=== PATIENT | female | born 1950 | race Caucasian/White ===

== ENCOUNTER 2022-07-24 19:23 | Inpatient (IN) ==
[2022-07-25] MEDS ORDERED: Naloxone 0.4 MG/ML INJ IVP PRN (00:30)
[2022-07-25] MEDS ORDERED: Ondansetron 4 MG/2 ML VIAL IVP PRN (00:30)
[2022-07-25 01:35] LABS: Hematocrit 31.2 % (35.3-44.9); Immature Granulocytes % 1.4 % (0-4); Lymphocytes % 12.2 %; Mean Corpuscular HGB Conc 32.1 g/dL (31.6-35.5); Mean Corpuscular Hemoglobin 27.2 pg (28.0-33.3); Mean Platelet Volume 9.2 fL (9.4-12.4); Platelet Count 191 K/mcL (140-400); Red Blood Count 3.67 M/mcL (3.82-4.97); Red Cell Distribution Width 14.3 % (11.5-14.5); White Blood Count 10.5 K/mcL (4.3-11.1)
[2022-07-25 01:36] LABS: Basophils # 0.1 K/mcL (0.0-0.2); Basophils % 1.1 %; Eosinophils # 0.2 K/mcL (0.0-0.6); Eosinophils % 1.5 %; Lymphocytes # 1.3 K/mcL (0.6-4.6); Monocytes % 9.8 %; Neutrophils # 7.7 K/mcL (1.6-8.9)
[2022-07-25 01:43] LABS: INR 1.1; Prothrombin Time 12.6 Seconds (9.4-12.1)
[2022-07-25 01:49] LABS: Adenovirus Not Detected (Not Detect); Bordetella Pertussis Not Detected (Not Detect); Chlamydophila pneumoniae Not Detected (Not Detect); Coronavirus 229E Not Detected (Not Detect); Coronavirus HKU1 Not Detected (Not Detect); Coronavirus NL63 Not Detected (Not Detect); Coronavirus OC43 Not Detected (Not Detect); Human Metapneumovirus Not Detected (Not Detect); Human Rhinovirus/Enterovirus Not Detected (Not Detect); Influenza A Subtype 2009 H1 Not Detected (Not Detect); Influenza B Not Detected (Not Detect); Mycoplasma pneumoniae Not Detected (Not Detect); Parainfluenza Virus 1 Not Detected (Not Detect); Parainfluenza Virus 2 Not Detected (Not Detect); Parainfluenza Virus 3 Not Detected (Not Detect); Parainfluenza Virus 4 Not Detected (Not Detect); Respiratory Syncytial Virus Not Detected (Not Detect); SARS-CoV-2 Not Detected (Not Detect)
[2022-07-25 02:16] LABS: Albumin 3.1 g/dL (3.5-5.7); Albumin/Globulin Ratio 1.1 (1.1-2.2); Bilirubin,Total 0.3 mg/dL (0.3-1.0); Calcium 8.9 mg/dL (8.6-10.3); Globulin 2.8 g/dL (2.4-3.5); Magnesium 2.1 mg/dL (1.6-2.6); Potassium 3.5 mEq/L (3.5-5.1); Total Protein 5.9 g/dL (6.4-8.9); Troponin I 0.04 ng/mL (< 0.04)
[2022-07-25] MEDS ORDERED: *HR* Heparin 5,000 UNIT/ML VIAL IVP ONE (03:48)
[2022-07-25] MEDS ORDERED: *HR* Heparin 5,000 UNIT/ML VIAL IVP PRN ×2 (03:48)
[2022-07-25 04:11] LABS: Bilirubin,Urine Negative (Negative); Blood,Urine Negative (Negative); Clarity,Urine Clear (Clear); Color,Urine Colorless (Yellow); Glucose,Urine (UA) Normal (Normal); Ketones,Urine Negative (Negative); Leukocyte Esterase,Urine Negative (Negative); Mucus,Urine Few per lpf (None-Few); Nitrite,Urine Negative (Negative); Protein,Urine 50 mg/dL (Neg-Trace); RBC,Urine 0-3 per hpf (0-3); Specific Gravity,Urine 1.008 (1.010-1.025); Squamous Epithelial Cell,Urine Few per hpf (None-Few); Urobilinogen,Urine Normal (Normal); WBC,Urine 0-3 per hpf (0-3)
[2022-07-25] MEDS ORDERED: Furosemide 20 MG/2 ML VIAL IVP ONE (04:16)
[2022-07-25 04:30] LABS: Hematocrit 30.8 % (35.3-44.9); Hemoglobin 9.9 g/dL (11.5-15.4); Mean Corpuscular HGB Conc 32.1 g/dL (31.6-35.5); Mean Corpuscular Hemoglobin 27.6 pg (28.0-33.3); Mean Corpuscular Volume 85.8 fL (83.0-100.0); Mean Platelet Volume 9.5 fL (9.4-12.4); Platelet Count 209 K/mcL (140-400); Red Blood Count 3.59 M/mcL (3.82-4.97); Red Cell Distribution Width 14.3 % (11.5-14.5); White Blood Count 11.3 K/mcL (4.3-11.1)
[2022-07-25] MEDS: Heparin 25,000UNIT/250ML 1/2NS 25,000 UNIT/250 ML IV.SOLN IVC SCH (04:31)
[2022-07-25 04:38] LABS: Heparin anti-factor XA UFH 0.04 IU/mL (0.30-0.70); INR 1.1
[2022-07-25] MEDS ORDERED: Aspirin 81 MG TAB.CHEW PO ONE (04:42)
[2022-07-25] MEDS: Acetaminophen 325 MG TABLET PO PRN (20:38)
[2022-07-26] MEDS: Heparin 25,000UNIT/250ML 1/2NS 25,000 UNIT/250 ML IV.SOLN IVC SCH (04:58)
[2022-07-26 08:32] LABS: Basophils # 0.1 K/mcL (0.0-0.2); Eosinophils # 0.3 K/mcL (0.0-0.6); Eosinophils % 3.5 %; Hematocrit 30.6 % (35.3-44.9); Hemoglobin 9.5 g/dL (11.5-15.4); Immature Granulocytes % 1.2 % (0-4); Lymphocytes # 1.6 K/mcL (0.6-4.6); Lymphocytes % 17.7 %; Mean Corpuscular Hemoglobin 27.2 pg (28.0-33.3); Mean Corpuscular Volume 87.7 fL (83.0-100.0); Mean Platelet Volume 9.8 fL (9.4-12.4); Monocytes % 10.8 %; Platelet Count 232 K/mcL (140-400); Red Blood Count 3.49 M/mcL (3.82-4.97); Red Cell Distribution Width 14.6 % (11.5-14.5); Segmented Neutrophils % 65.8 %; White Blood Count 9.2 K/mcL (4.3-11.1)
[2022-07-26 08:42] LABS: Calcium 8.7 mg/dL (8.6-10.3); Potassium 3.8 mEq/L (3.5-5.1)
[2022-07-26] MEDS ORDERED: Ipratropium/Albuterol Neb 3 ML IH ONE (12:13)
[2022-07-26] MEDS ORDERED: *HR* LORazepam 2 MG/ML VIAL IVP ONE (13:46)
[2022-07-26] MEDS: Furosemide 40 MG TABLET PO SCH (17:13)
[2022-07-26] MEDS: Gabapentin 300 MG CAPSULE PO SCH (22:16)
[2022-07-27] MEDS: Heparin 25,000UNIT/250ML 1/2NS 25,000 UNIT/250 ML IV.SOLN IVC SCH ×3 (00:22→21:31)
[2022-07-27 01:28] LABS: Basophils # 0.1 K/mcL (0.0-0.2); Basophils % 0.9 %; Eosinophils # 0.2 K/mcL (0.0-0.6); Eosinophils % 1.5 %; Hematocrit 30.4 % (35.3-44.9); Hemoglobin 9.5 g/dL (11.5-15.4); Immature Granulocytes % 1.1 % (0-4); Lymphocytes # 1.5 K/mcL (0.6-4.6); Lymphocytes % 12.8 %; Mean Corpuscular HGB Conc 31.3 g/dL (31.6-35.5); Mean Corpuscular Hemoglobin 27.2 pg (28.0-33.3); Mean Corpuscular Volume 87.1 fL (83.0-100.0); Mean Platelet Volume 9.3 fL (9.4-12.4); Monocytes # 1.3 K/mcL (0.0-1.3); Monocytes % 10.9 %; Neutrophils # 8.6 K/mcL (1.6-8.9); Platelet Count 228 K/mcL (140-400); Red Blood Count 3.49 M/mcL (3.82-4.97); Red Cell Distribution Width 14.6 % (11.5-14.5); Segmented Neutrophils % 72.8 %; White Blood Count 11.9 K/mcL (4.3-11.1)
[2022-07-27 01:49] LABS: Calcium 8.6 mg/dL (8.6-10.3); Potassium 3.9 mEq/L (3.5-5.1)
[2022-07-27] MEDS: calcitrioL 0.25 MCG CAPSULE PO SCH (09:34)
[2022-07-27] MEDS: Furosemide 40 MG TABLET PO SCH ×2 (09:34→17:10)
[2022-07-27] MEDS: Cholecalciferol (D-3) 1,000 UNIT (25MCG) TABLET PO SCH (09:34)
[2022-07-27] MEDS: Zinc Sulfate 220 MG CAPSULE PO SCH (09:34)
[2022-07-27] MEDS: Magnesium Oxide 400 MG TABLET PO SCH (09:34)
[2022-07-27] MEDS: predniSONE 10 MG TABLET PO SCH (09:34)
[2022-07-27 11:14] LABS: INR 1.3; Prothrombin Time 14.2 Seconds (9.4-12.1)
[2022-07-27] MEDS: Metoprolol XL (24 HR) Succ 25 MG TAB.ER.24H PO SCH (12:10)
[2022-07-27] MEDS ORDERED: Warfarin perPT PO PRN (18:00)
[2022-07-27] MEDS ORDERED: *HR* Warfarin 2.5 MG TABLET PO ONE (18:00)
[2022-07-27] MEDS: polyethylene glycoL 3350 17 GM POWD.PACK PO SCH (19:40)
[2022-07-27] MEDS: Gabapentin 300 MG CAPSULE PO SCH (19:40)
[2022-07-28 08:07] LABS: Basophils # 0.1 K/mcL (0.0-0.2); Basophils % 0.8 %; Eosinophils # 0.3 K/mcL (0.0-0.6); Hematocrit 28.7 % (35.3-44.9); Hemoglobin 8.9 g/dL (11.5-15.4); Immature Granulocytes % 1.2 % (0-4); Lymphocytes % 15.2 %; Mean Corpuscular Hemoglobin 26.8 pg (28.0-33.3); Mean Corpuscular Volume 86.4 fL (83.0-100.0); Mean Platelet Volume 9.5 fL (9.4-12.4); Monocytes # 1.4 K/mcL (0.0-1.3); Monocytes % 10.7 %; Neutrophils # 9.1 K/mcL (1.6-8.9); Platelet Count 246 K/mcL (140-400); Red Blood Count 3.32 M/mcL (3.82-4.97); Red Cell Distribution Width 14.6 % (11.5-14.5); Segmented Neutrophils % 70.1 %; White Blood Count 12.9 K/mcL (4.3-11.1)
[2022-07-28 08:17] LABS: Calcium 8.6 mg/dL (8.6-10.3); Potassium 3.9 mEq/L (3.5-5.1)
[2022-07-28 08:20] LABS: INR 1.3; Prothrombin Time 14.2 Seconds (9.4-12.1)
[2022-07-28] MEDS: calcitrioL 0.25 MCG CAPSULE PO SCH (08:56)
[2022-07-28] MEDS: Zinc Sulfate 220 MG CAPSULE PO SCH (08:56)
[2022-07-28] MEDS: predniSONE 10 MG TABLET PO SCH (08:56)
[2022-07-28] MEDS: Metoprolol XL (24 HR) Succ 25 MG TAB.ER.24H PO SCH (08:56)
[2022-07-28] MEDS: Magnesium Oxide 400 MG TABLET PO SCH (08:57)
[2022-07-28] MEDS: Cholecalciferol (D-3) 1,000 UNIT (25MCG) TABLET PO SCH (08:57)
[2022-07-28] MEDS: Furosemide 40 MG TABLET PO SCH ×2 (08:57→17:38)
[2022-07-28] MEDS: polyethylene glycoL 3350 17 GM POWD.PACK PO SCH (08:57)
[2022-07-28] MEDS ORDERED: *HR* Enoxaparin 120 MG/0.8 ML SYRINGE SQ SCH (10:00)
[2022-07-28] MEDS: Acetaminophen 325 MG TABLET PO PRN (14:54)
[2022-07-28] MEDS ORDERED: *HR* OxyCODONE Immed Rel 5 MG TABLET PO ONE (16:29)
[2022-07-28] MEDS ORDERED: *HR* Warfarin 3 MG TABLET PO ONE (18:00)
[2022-07-28] MEDS: Gabapentin 300 MG CAPSULE PO SCH (20:57)
[2022-07-29 00:28] LABS: Hematocrit 23.5 % (35.3-44.9); Hemoglobin 7.4 g/dL (11.5-15.4)
[2022-07-29 02:31] LABS: INR 1.3; Prothrombin Time 14.5 Seconds (9.4-12.1)
[2022-07-29 02:34] LABS: Activated Partial Thrombo Time 36.2 Seconds (26.0-36.0)
[2022-07-29 04:38] LABS: Hematocrit 21.7 % (35.3-44.9); Hemoglobin 6.8 g/dL (11.5-15.4)
[2022-07-29] MEDS ORDERED: 0.9 % Sodium Chloride 250 ML ONE ×2 (06:07→10:19)
[2022-07-29] MEDS ORDERED: 0.9 % Sodium Chloride 500 ML IVC ONE (06:53)
[2022-07-29] MEDS: Furosemide 40 MG TABLET PO SCH ×2 (08:34→15:13)
[2022-07-29] MEDS: polyethylene glycoL 3350 17 GM POWD.PACK PO SCH (08:35)
[2022-07-29] MEDS: Magnesium Oxide 400 MG TABLET PO SCH (08:35)
[2022-07-29] MEDS: Zinc Sulfate 220 MG CAPSULE PO SCH (08:35)
[2022-07-29] MEDS: predniSONE 10 MG TABLET PO SCH (08:35)
[2022-07-29] MEDS: Cholecalciferol (D-3) 1,000 UNIT (25MCG) TABLET PO SCH (08:35)
[2022-07-29] MEDS: calcitrioL 0.25 MCG CAPSULE PO SCH (08:35)
[2022-07-29] MEDS: Metoprolol XL (24 HR) Succ 25 MG TAB.ER.24H PO SCH (08:35)
[2022-07-29 10:18] LABS: Basophils # 0.2 K/mcL (0.0-0.2); Eosinophils # 0.2 K/mcL (0.0-0.6); Hematocrit 25.4 % (35.3-44.9); Hematocrit 25.7 % (35.3-44.9); Hemoglobin 8.2 g/dL (11.5-15.4); Hemoglobin 8.3 g/dL (11.5-15.4); Immature Granulocytes % 2.3 % (0-4); Lymphocytes # 2.5 K/mcL (0.6-4.6); Lymphocytes % 15.8 %; Mean Corpuscular HGB Conc 31.9 g/dL (31.6-35.5); Mean Corpuscular Hemoglobin 27.6 pg (28.0-33.3); Mean Corpuscular Volume 86.5 fL (83.0-100.0); Monocytes # 1.7 K/mcL (0.0-1.3); Monocytes % 10.6 %; Neutrophils # 10.9 K/mcL (1.6-8.9); Platelet Count 270 K/mcL (140-400); Red Blood Count 2.97 M/mcL (3.82-4.97); Red Cell Distribution Width 14.4 % (11.5-14.5); Segmented Neutrophils % 69.3 %; White Blood Count 15.7 K/mcL (4.3-11.1)
[2022-07-29 10:37] LABS: Calcium 8.1 mg/dL (8.6-10.3); Potassium 4.7 mEq/L (3.5-5.1)
[2022-07-29 14:34] LABS: Hematocrit 28.4 % (35.3-44.9); Hemoglobin 9.2 g/dL (11.5-15.4)
[2022-07-29] MEDS: Gabapentin 300 MG CAPSULE PO SCH (20:33)
[2022-07-29 21:54] LABS: Hematocrit 25.9 % (35.3-44.9); Hemoglobin 8.5 g/dL (11.5-15.4)
[2022-07-29] MEDS: Acetaminophen 325 MG TABLET PO PRN (22:48)
[2022-07-30 03:18] LABS: Basophils # 0.1 K/mcL (0.0-0.2); Basophils % 0.7 %; Eosinophils # 0.3 K/mcL (0.0-0.6); Eosinophils % 2.2 %; Hematocrit 24.9 % (35.3-44.9); Hemoglobin 8.2 g/dL (11.5-15.4); Immature Granulocytes % 2.2 % (0-4); Lymphocytes # 2.2 K/mcL (0.6-4.6); Lymphocytes % 14.2 %; Mean Corpuscular HGB Conc 32.9 g/dL (31.6-35.5); Mean Corpuscular Hemoglobin 27.7 pg (28.0-33.3); Mean Corpuscular Volume 84.1 fL (83.0-100.0); Mean Platelet Volume 9.7 fL (9.4-12.4); Monocytes # 1.5 K/mcL (0.0-1.3); Neutrophils # 10.8 K/mcL (1.6-8.9); Platelet Count 248 K/mcL (140-400); Red Blood Count 2.96 M/mcL (3.82-4.97); Red Cell Distribution Width 14.5 % (11.5-14.5); Segmented Neutrophils % 70.7 %; White Blood Count 15.2 K/mcL (4.3-11.1)
[2022-07-30 03:36] LABS: Calcium 7.9 mg/dL (8.6-10.3); Potassium 4.6 mEq/L (3.5-5.1)
[2022-07-30] MEDS: predniSONE 10 MG TABLET PO SCH (08:39)
[2022-07-30] MEDS: Magnesium Oxide 400 MG TABLET PO SCH (08:39)
[2022-07-30] MEDS: Zinc Sulfate 220 MG CAPSULE PO SCH (08:40)
[2022-07-30] MEDS: calcitrioL 0.25 MCG CAPSULE PO SCH (08:40)
[2022-07-30] MEDS: Cholecalciferol (D-3) 1,000 UNIT (25MCG) TABLET PO SCH (08:40)
[2022-07-30] MEDS: Metoprolol XL (24 HR) Succ 25 MG TAB.ER.24H PO SCH (08:41)
[2022-07-30] MEDS: polyethylene glycoL 3350 17 GM POWD.PACK PO SCH ×2 (08:41→08:49)
[2022-07-30] MEDS: Furosemide 40 MG TABLET PO SCH (08:46)
[2022-07-30] MEDS ORDERED: 0.9 % Sodium Chloride 1,000 ML IVC SCH (09:00)
[2022-07-30] MEDS: Acetaminophen 325 MG TABLET PO PRN (14:15)
[2022-07-30 14:24] LABS: Hematocrit 24.6 % (35.3-44.9); Hemoglobin 8.2 g/dL (11.5-15.4)
[2022-07-30] MEDS: Gabapentin 300 MG CAPSULE PO SCH (20:26)
[2022-07-31 02:38] LABS: Basophils # 0.1 K/mcL (0.0-0.2); Basophils % 0.3 %; Eosinophils # 0.1 K/mcL (0.0-0.6); Eosinophils % 0.8 %; Hematocrit 22.4 % (35.3-44.9); Hemoglobin 7.4 g/dL (11.5-15.4); Lymphocytes % 6.6 %; Mean Corpuscular Volume 84.8 fL (83.0-100.0); Mean Platelet Volume 9.6 fL (9.4-12.4); Monocytes # 1.3 K/mcL (0.0-1.3); Monocytes % 8.3 %; Neutrophils # 12.3 K/mcL (1.6-8.9); Platelet Count 264 K/mcL (140-400); Red Blood Count 2.64 M/mcL (3.82-4.97); Red Cell Distribution Width 14.4 % (11.5-14.5); White Blood Count 15.1 K/mcL (4.3-11.1)
[2022-07-31 02:54] LABS: Calcium 7.7 mg/dL (8.6-10.3); Potassium 4.8 mEq/L (3.5-5.1)
[2022-07-31] MEDS: Cholecalciferol (D-3) 1,000 UNIT (25MCG) TABLET PO SCH (08:50)
[2022-07-31] MEDS: Magnesium Oxide 400 MG TABLET PO SCH (08:50)
[2022-07-31] MEDS: calcitrioL 0.25 MCG CAPSULE PO SCH (08:50)
[2022-07-31] MEDS: Metoprolol XL (24 HR) Succ 25 MG TAB.ER.24H PO SCH (08:50)
[2022-07-31] MEDS: predniSONE 10 MG TABLET PO SCH (08:50)
[2022-07-31] MEDS: polyethylene glycoL 3350 17 GM POWD.PACK PO SCH (08:53)
[2022-07-31] MEDS: Zinc Sulfate 220 MG CAPSULE PO SCH (09:00)
[2022-07-31 13:32] LABS: Hematocrit 24.2 % (35.3-44.9); Hemoglobin 7.8 g/dL (11.5-15.4)
[2022-07-31] MEDS: Gabapentin 300 MG CAPSULE PO SCH (21:20)
[2022-08-01 04:05] LABS: Basophils # 0.1 K/mcL (0.0-0.2); Basophils % 0.6 %; Eosinophils # 0.2 K/mcL (0.0-0.6); Eosinophils % 1.3 %; Hematocrit 24.7 % (35.3-44.9); Hemoglobin 7.8 g/dL (11.5-15.4); Immature Granulocytes % 1.8 % (0-4); Lymphocytes # 1.6 K/mcL (0.6-4.6); Lymphocytes % 11.5 %; Mean Corpuscular HGB Conc 31.6 g/dL (31.6-35.5); Mean Corpuscular Hemoglobin 28.2 pg (28.0-33.3); Mean Corpuscular Volume 89.2 fL (83.0-100.0); Mean Platelet Volume 9.4 fL (9.4-12.4); Monocytes # 1.3 K/mcL (0.0-1.3); Monocytes % 9.3 %; Neutrophils # 10.2 K/mcL (1.6-8.9); Platelet Count 264 K/mcL (140-400); Red Blood Count 2.77 M/mcL (3.82-4.97); Red Cell Distribution Width 14.6 % (11.5-14.5); Segmented Neutrophils % 75.5 %; White Blood Count 13.6 K/mcL (4.3-11.1)
[2022-08-01 04:22] LABS: Magnesium 1.7 mg/dL (1.6-2.6); Potassium 4.5 mEq/L (3.5-5.1)
[2022-08-01] MEDS: Magnesium Oxide 400 MG TABLET PO SCH (09:46)
[2022-08-01] MEDS: Metoprolol XL (24 HR) Succ 25 MG TAB.ER.24H PO SCH (09:46)
[2022-08-01] MEDS: Cholecalciferol (D-3) 1,000 UNIT (25MCG) TABLET PO SCH (09:46)
[2022-08-01] MEDS: calcitrioL 0.25 MCG CAPSULE PO SCH (09:47)
[2022-08-01] MEDS: predniSONE 10 MG TABLET PO SCH (09:47)
[2022-08-01] MEDS: polyethylene glycoL 3350 17 GM POWD.PACK PO SCH (10:07)
[2022-08-01] MEDS: Zinc Sulfate 220 MG CAPSULE PO SCH (10:07)
[2022-08-01 17:30] LABS: Influenza A PCR Negative (Negative); Influenza B PCR Negative (Negative); Resp. Syncytial Virus PCR Negative (Negative); SARS-CoV-2 by PCR (In House) Negative (Negative)
[2022-08-01] MEDS: Gabapentin 300 MG CAPSULE PO SCH (23:03)
[2022-08-02] MEDS: Acetaminophen 325 MG TABLET PO PRN (04:49)
[2022-08-02 08:48] LABS: Calcium 8.5 mg/dL (8.6-10.3); Potassium 4.3 mEq/L (3.5-5.1)
[2022-08-02] MEDS: Metoprolol XL (24 HR) Succ 25 MG TAB.ER.24H PO SCH (09:24)
[2022-08-02] MEDS: Cholecalciferol (D-3) 1,000 UNIT (25MCG) TABLET PO SCH (09:24)
[2022-08-02] MEDS: polyethylene glycoL 3350 17 GM POWD.PACK PO SCH (09:25)
[2022-08-02] MEDS: predniSONE 10 MG TABLET PO SCH (09:25)
[2022-08-02] MEDS: Magnesium Oxide 400 MG TABLET PO SCH (09:25)
[2022-08-02] MEDS: calcitrioL 0.25 MCG CAPSULE PO SCH (09:25)
[2022-08-02] MEDS: Zinc Sulfate 220 MG CAPSULE PO SCH (09:25)
[2022-08-02 11:08] LABS: Basophils # 0.1 K/mcL (0.0-0.2); Basophils % 0.8 %; Eosinophils # 0.3 K/mcL (0.0-0.6); Eosinophils % 2.1 %; Hematocrit 23.5 % (35.3-44.9); Hemoglobin 7.4 g/dL (11.5-15.4); Immature Granulocytes % 1.5 % (0-4); Lymphocytes # 1.8 K/mcL (0.6-4.6); Lymphocytes % 13.7 %; Mean Corpuscular HGB Conc 31.5 g/dL (31.6-35.5); Mean Corpuscular Hemoglobin 27.5 pg (28.0-33.3); Mean Corpuscular Volume 87.4 fL (83.0-100.0); Monocytes # 1.3 K/mcL (0.0-1.3); Monocytes % 10.1 %; Neutrophils # 9.3 K/mcL (1.6-8.9); Platelet Count 325 K/mcL (140-400); Red Blood Count 2.69 M/mcL (3.82-4.97); Red Cell Distribution Width 14.8 % (11.5-14.5); Segmented Neutrophils % 71.8 %
[2022-08-02] MEDS: Furosemide 40 MG TABLET PO SCH (17:07)
[2022-08-02] MEDS: Gabapentin 300 MG CAPSULE PO SCH (22:12)
[2022-08-03 01:53] LABS: Basophils # 0.1 K/mcL (0.0-0.2); Basophils % 0.5 %; Eosinophils # 0.1 K/mcL (0.0-0.6); Eosinophils % 0.5 %; Hematocrit 23.5 % (35.3-44.9); Hemoglobin 7.6 g/dL (11.5-15.4); Immature Granulocytes % 1.9 % (0-4); Lymphocytes # 1.1 K/mcL (0.6-4.6); Lymphocytes % 7.2 %; Mean Corpuscular HGB Conc 32.3 g/dL (31.6-35.5); Mean Corpuscular Hemoglobin 27.9 pg (28.0-33.3); Mean Corpuscular Volume 86.4 fL (83.0-100.0); Mean Platelet Volume 8.9 fL (9.4-12.4); Monocytes # 1.2 K/mcL (0.0-1.3); Monocytes % 8.2 %; Neutrophils # 12.1 K/mcL (1.6-8.9); Platelet Count 348 K/mcL (140-400); Red Blood Count 2.72 M/mcL (3.82-4.97); Red Cell Distribution Width 14.6 % (11.5-14.5); Segmented Neutrophils % 81.7 %; White Blood Count 14.8 K/mcL (4.3-11.1)
[2022-08-03 02:13] LABS: Calcium 8.5 mg/dL (8.6-10.3); Potassium 5.1 mEq/L (3.5-5.1)
[2022-08-03] MEDS: Acetaminophen 325 MG TABLET PO PRN (04:08)
[2022-08-03] MEDS ORDERED: *HR* Metoprolol 5 MG/5 ML VIAL IVP ONE (04:51)
[2022-08-03] MEDS: Zinc Sulfate 220 MG CAPSULE PO SCH (07:53)
[2022-08-03] MEDS: predniSONE 10 MG TABLET PO SCH (07:53)
[2022-08-03] MEDS: Metoprolol XL (24 HR) Succ 25 MG TAB.ER.24H PO SCH (07:53)
[2022-08-03] MEDS: calcitrioL 0.25 MCG CAPSULE PO SCH (07:54)
[2022-08-03] MEDS: Furosemide 40 MG TABLET PO SCH (07:54)
[2022-08-03] MEDS: Cholecalciferol (D-3) 1,000 UNIT (25MCG) TABLET PO SCH (07:54)
[2022-08-03] MEDS: polyethylene glycoL 3350 17 GM POWD.PACK PO SCH (07:54)
[2022-08-03] MEDS: Magnesium Oxide 400 MG TABLET PO SCH (07:54)
[2022-08-03 10:17] LABS: Adenovirus Not Detected (Not Detect); Coronavirus 229E Not Detected (Not Detect); Coronavirus HKU1 Not Detected (Not Detect); Coronavirus NL63 Not Detected (Not Detect); Coronavirus OC43 Not Detected (Not Detect); Human Metapneumovirus Not Detected (Not Detect); Human Rhinovirus/Enterovirus Not Detected (Not Detect); SARS-CoV-2 Not Detected (Not Detect)
[2022-08-03 10:18] LABS: Bordetella Pertussis Not Detected (Not Detect); Chlamydophila pneumoniae Not Detected (Not Detect); Influenza A Subtype 2009 H1 Not Detected (Not Detect); Influenza B Not Detected (Not Detect); Mycoplasma pneumoniae Not Detected (Not Detect); Parainfluenza Virus 1 Not Detected (Not Detect); Parainfluenza Virus 2 Not Detected (Not Detect); Parainfluenza Virus 3 Not Detected (Not Detect); Parainfluenza Virus 4 Not Detected (Not Detect); Respiratory Syncytial Virus Not Detected (Not Detect)
[2022-08-03 11:08] VITALS: BP 148/81; PULSE 94; TEMP 97.5; O2SAT 97
== END 2022-08-03 15:49 | DRG 175 ==
LOC: 2ANU → SUATTDRO 23:53
PROVIDERS: ADMIT Internal Medicine; ATTEND Internal Medicine